=== PATIENT | male | born 1955 | race Caucasian/White ===

== ENCOUNTER 2018-09-09 12:47 | Emergency (ER) | payer OTHER ==
[2018-09-09] MEDS ORDERED: Ketorolac 60 MG/2 ML SDV IM ONE (13:10)
--- NOTE | 2018-09-09 13:35 | EDM.PDOC ---
ED HPI GENERAL MEDICAL PROBLEM - General Chief Complaint: General Stated Complaint: tooth pain Time Seen by Provider: 09/09/18 12:50 Source of Information: Reports: Patient History Limitations: Reports: No Limitations - History of Present Illness Onset: Gradual Duration: Week(s):, Getting Worse Location: Reports: Other (Right upper incisor) Quality: Reports: Ache, Throbbing Severity: Moderate Improves with: Reports: Cold Therapy Worsens with: Reports: None Associated Symptoms: Reports: No Other Symptoms left upper tooth/face Pain Score (Numeric/FACES): 10 - Related Data Allergies Allergy/AdvReac Type Severity Reaction Status Date / Time No Known Allergies Allergy Verified 09/09/18 12:50 Home Meds: Home Meds Ibuprofen 800 mg PO Q4HR PRN 09/09/18 [History] Past Medical History - Past Surgical History Musculoskeletal Surgical History: Reports: Shoulder Surgery, Other (See Below) Other Musculoskeletal Surgeries/Procedures:: bilat rotator cuff repairs Social & Family History - Tobacco Use Smoking Status *Q: Current Every Day Smoker Years of Tobacco use: 35 Packs/Tins Daily: 1 - Recreational Drug Use Recreational Drug Use: No ED ROS GENERAL - Review of Systems Review Of Systems: See Below Constitutional: Reports: No Symptoms HEENT: Reports: Other (Right upper canine pain) Respiratory: Reports: No Symptoms Cardiovascular: Reports: No Symptoms Endocrine: Reports: No Symptoms GI/Abdominal: Reports: No Symptoms : Reports: No Symptoms Musculoskeletal: Reports: No Symptoms Skin: Reports: No Symptoms Neurological: Reports: No Symptoms Psychiatric: Reports: No Symptoms Hematologic/Lymphatic: Reports: No Symptoms Immunologic: Reports: No Symptoms ED EXAM, GENERAL - Physical Exam Exam: See Below Exam Limited By: No Limitations General Appearance: Alert, WD/WN, No Apparent Distress Ears: Normal External Exam, Normal Canal, Hearing Grossly Normal, Normal TMs Nose: Normal Inspection, Normal Mucosa, No Blood Throat/Mouth: Other (Right incisor upper pain) Head: Atraumatic, Normocephalic Neck: Normal Inspection, Supple, Non-Tender, Full Range of Motion Respiratory/Chest: No Respiratory Distress, Lungs Clear, Normal Breath Sounds, No Accessory Muscle Use, Chest Non-Tender Cardiovascular: Normal Peripheral Pulses, Regular Rate, Rhythm, No Edema, No Gallop, No JVD, No Murmur, No Rub GI/Abdominal: Normal Bowel Sounds, Soft, Non-Tender, No Organomegaly, No Distention, No Abnormal Bruit, No Mass (Male) Exam: No Hernia, Normal Inspection, Normal Prostate, Circumcised Rectal (Males) Exam: Deferred Extremities: Normal Capillary Refill, Arm Pain Neurological: Alert, Oriented, CN II-XII Intact, Normal Cognition, Normal Gait, Normal Reflexes, No Motor/Sensory Deficits Skin Exam: Ecchymosis (Right wrist) Lymphatic: No Adenopathy Course - Vital Signs Last Recorded V/S: Last Vital Signs Temp 98.3 F 09/09/18 12:48 Pulse 81 09/09/18 12:48 Resp 20 09/09/18 12:48 BP 188/96 H 09/09/18 12:48 Pulse Ox 98 09/09/18 12:48 - Orders/Labs/Meds Meds: Medications Discontinued Medications Generic Name Dose Route Start Last Admin Trade Name Freq PRN Reason Stop Dose Admin Ketorolac Tromethamine 60 mg 09/09/18 13:10 09/09/18 13:19 Toradol IM 09/09/18 13:11 60 mg ONETIME ONE Administration Departure - Departure Time of Disposition: 13:52 Disposition: Home, Self-Care 01 Condition: Fair Clinical Impression: Apical abscess, Pain - Discharge Information *PRESCRIPTION DRUG MONITORING PROGRAM REVIEWED*: No *COPY OF PRESCRIPTION DRUG MONITORING REPORT IN PATIENT NILAM: No Instructions: Amoxicillin; Clavulanic Acid tablets, Dental Abscess, Ketorolac tablets Referrals: Dino Montes De Oca [employer] [Primary Care Provider] - Forms: ED Department Discharge Care Plan Goals: Patient sent home with Toradol 10 mg every 6 hours for pain and Augmentin 875 twice a day for infection follow-up with dentist Tuesday at 12
== END 2018-09-09 14:05 | disposition home or self-care (01) ==
LOC: LL.ED 12:47
DX: K04.7 Periapical abscess without sinus (principal); F17.210 Nicotine dependence, cigarettes, uncomplicated
CPT/HCPCS: 96372; 99282; J1885

== ENCOUNTER 2021-03-26 13:44 | Emergency (ER) | payer MEDICARE, BC ==
[2021-03-26] MEDS ORDERED: Sodium Chloride 0.9% 10 ML Syringe FLUSH PRN (13:54)
--- NOTE | 2021-03-26 14:10 | EDM.PDOC ---
ED HPI GENERAL MEDICAL PROBLEM - General Chief Complaint: Neuro Symptoms/Deficits Stated Complaint: Slurred Speech Time Seen by Provider: 03/26/21 13:45 Source of Information: Reports: Patient History Limitations: Reports: No Limitations - History of Present Illness INITIAL COMMENTS - FREE TEXT/NARRATIVE: Pt. presents to ER with history of of intermittent expressive aphasia, co mplaints of intermittent R hand numbness, intermittent R lower extremity numbness, intermittent R sided facial numbness. Pt. states that the expressive aphasia has been happening intermittently for approx. 2 days. The last episode happened this AM at approx. 11:30 in the presence of his brother. Pt. denies any history of cerebrovascular disease. Pt. has multiple risk factors for stroke including obesity and smoking (approx. 1.5 ppd). His blood glucose was checked in ER on arrival and was greater than 300mg/dl. Pt. has never been diagnosed with diabetes in the past. Pt. sister in law states that the patient "doesn't doctor" and has not had any preventive medical care for years. Aside from the expressive aphasia, today pt. only complained for numbness in the 4th and 5th digit of the R hand, which again has been a chronic problem for the pt. He has not had any lower extremity of facial numbness for weeks. He denies any current chest pain, but has intermittent exertional chest pain at times, as well as COATES. He is currently not experiencing any shortness of breath at rest. He is vaccinated for covid. He is not experiencing any headache, vision loss or change, weakness in upper or lower extremities, facial droop. NIH on arrival to ER was 0. Onset Date: 03/25/21 Location: Reports: Head, Generalized - Related Data Allergies Allergy/AdvReac Type Severity Reaction Status Date / Time No Known Allergies Allergy Verified 03/26/21 13:57 Home Meds: Home Meds Ibuprofen 800 mg PO Q4HR PRN 09/09/18 [History] Past Medical History - Past Surgical History Musculoskeletal Surgical History: Reports: Shoulder Surgery, Other (See Below) Other Musculoskeletal Surgeries/Procedures:: bilat rotator cuff repairs ED ROS GENERAL - Review of Systems Review Of Systems: See Below Constitutional: Reports: No Symptoms HEENT: Reports: Other (states has had blurred vision for months, L more than R.) Respiratory: Reports: No Symptoms Cardiovascular: Reports: No Symptoms Endocrine: Reports: No Symptoms GI/Abdominal: Reports: No Symptoms : Reports: No Symptoms Musculoskeletal: Reports: No Symptoms Skin: Reports: No Symptoms Neurological: Reports: Numbness, Trouble Speaking Psychiatric: Reports: No Symptoms Hematologic/Lymphatic: Reports: No Symptoms Immunologic: Reports: No Symptoms ED EXAM, GENERAL - Physical Exam Exam: See Below Exam Limited By: No Limitations General Appearance: Alert, WD/WN, Anxious Eye Exam: Bilateral Eye: EOMI, Normal Fundi, PERRL Ears: Normal External Exam, Normal Canal, Hearing Grossly Normal, Normal TMs Ear Exam: Bilateral Ear: Auricle Normal, Canal Normal, TM normal Nose: Normal Inspection, No Blood Throat/Mouth: Normal Inspection, Normal Lips, Normal Oropharynx, Normal Voice, No Airway Compromise Head: Atraumatic, Normocephalic Neck: Normal Inspection, Supple, Non-Tender, Full Range of Motion Respiratory/Chest: No Respiratory Distress, No Accessory Muscle Use, Chest Non- Tender, Decreased Breath Sounds Cardiovascular: Normal Peripheral Pulses, Regular Rate, Rhythm, No Edema, No JVD Peripheral Pulses: 4+: Radial (L) GI/Abdominal: Soft, Non-Tender, No Organomegaly, No Distention (Male) Exam: Deferred Rectal (Males) Exam: Deferred Back Exam: Normal Inspection, Full Range of Motion Extremities: Normal Inspection, Normal Range of Motion, Non-Tender, No Pedal Edema, Normal Capillary Refill Neurological: Alert, Oriented, CN II-XII Intact, Normal Cognition, Normal Gait, Normal Reflexes, No Motor/Sensory Deficits Psychiatric: Normal Affect, Anxious Skin Exam: Warm, Dry, Intact, Normal Color, No Rash Lymphatic: No Adenopathy Course - Vital Signs Last Recorded V/S: Last Vital Signs Temp 35.8 C L 03/26/21 13:45 Pulse 67 03/26/21 18:00 Resp 20 03/26/21 14:00 BP 131/81 03/26/21 18:00 Pulse Ox 97 03/26/21 14:00 - Orders/Labs/Meds Orders: Active Orders 24 hr Category Date Time Status Cardiac Monitoring [RC] CONTINUOUS Care 03/26/21 13:54 Active EKG Documentation Completion [RC] ASDIRECTED Care 03/26/21 14:03 Active Peripheral IV Care [RC] . DIRECTED Care 03/26/21 13:56 Active Ang Head [CT] Stat Exams 03/26/21 16:10 Taken Ang Neck [CT] Stat Exams 03/26/21 16:10 Ordered Head wo Cont [CT] Stat Exams 03/26/21 13:55 Taken DRUG SCREEN, URINE [URCHEM] Stat Lab 03/26/21 13:56 Ordered Sodium Chloride 0.9% [Saline Flush] Med 03/26/21 13:54 Active 10 ml FLUSH ASDIRECTED PRN Peripheral IV Insertion Adult [OM.PC] Routine Oth 03/26/21 13:55 Ordered EKG 12 Lead [EK] Stat Ther 03/26/21 14:03 Ordered Medication Orders Sodium Chloride (Sodium Chloride 0.9% 10 Ml Syringe) 10 ml FLUSH ASDIRECTED PRN PRN Reason: Keep Vein Open Labs: Laboratory Tests 03/26/21 03/26/21 03/26/21 Range/Units 13:55 13:55 13:55 WBC 10.8 H (4.0-10.2) K/uL RBC 5.14 (4.33-5.41) M/uL Hgb 18.0 H D (13.1-16.8) g/dL Hct 52.0 H (39.0-49.0) % MCV 101.2 H D (84.0-98.0) fL MCH 35.0 H (28.2-33.3) pg MCHC 34.6 (31.7-36.0) g/dL RDW 12.3 (11.2-14.1) % Plt Count 147 L (150-350) K/uL Neut % (Auto) 70.3 (45.0-80.0) % Lymph % (Auto) 22.5 (10.0-50.0) % [place] % (Auto) 6.1 (2.0-14.0) % Eos % (Auto) 0.6 (0.0-5.0) % Baso % (Auto) 0.5 (0.0-2.0) % Neut # (Auto) 7.58 H (1.40-7.00) K/uL Lymph # (Auto) 2.43 (0.50-3.50) K/uL [place] # (Auto) 0.66 (0.00-1.00) K/uL Eos # (Auto) 0.07 (0.00-0.50) K/uL Baso # (Auto) 0.05 (0.00-0.20) K/uL PT 9.8 (9.5-12.0) SEC INR 1.0 APTT 22.4 L (24.5-32.8) SEC Sodium 138 (136-145) mmol/L Potassium 4.1 (3.5-5.1) mmol/L Chloride 104 (98-107) mmol/L Carbon Dioxide 24.8 (21.0-32.0) mmol/L Anion Gap 9.2 (7-15) meq/L BUN 15 (7-18) mg/dL Creatinine 1.03 (0.51-1.17) mg/dL Est Cr Clr Drug Dosing 78.48 mL/min Estimated GFR (MDRD) > 60 mL/min Glucose 297 H (70-99) mg/dL Calcium 9.1 (8.5-10.1) mg/dL Phosphorus 2.9 (2.6-4.7) mg/dL Magnesium 1.7 L (1.8-2.4) mg/dL Total Bilirubin 0.7 (0.2-1.0) mg/dL AST 22 (15-37) U/L ALT 43 (12-78) U/L Alkaline Phosphatase 96 (46-116) IU/L Troponin I High Sens 7 (<=76) ng/L C-Reactive Protein 0.5 (<=0.9) mg/dL Total Protein 6.5 (6.4-8.2) g/dL Albumin 3.4 (3.4-5.0) g/dL TSH, Ultra Sensitive 0.826 (0.358-3.740) mIU/mL Ethyl Alcohol 0.005 (0.000-0.080) g/dL Meds: Medications Generic Name Dose Route Start Last Admin Trade Name Freq PRN Reason Stop Dose Admin Sodium Chloride 10 ml 03/26/21 13:54 Sodium Chloride 0.9% 10 Ml Syringe FLUSH ASDIRECTED PRN Keep Vein Open Discontinued Medications Generic Name Dose Route Start Last Admin Trade Name Freq PRN Reason Stop Dose Admin Acetaminophen 1,000 mg 03/26/21 17:56 Acetaminophen 500 Mg Tab PO 03/26/21 17:57 ONETIME ONE Iopamidol 100 ml 03/26/21 16:15 03/26/21 16:35 Iopamidol 755 Mg/Ml 100 Ml Bottle IVPUSH 03/26/21 16:16 100 ml ONETIME ONE Administration Nicotine 14 mg 03/26/21 17:07 03/26/21 17:14 Nicotine 14 Mg/24 Hr Patch TRDERM 03/26/21 17:08 14 mg ONETIME ONE Administration - Radiology Interpretation Free Text/Narrative:: Non-contrast CT of head was obtained and was negative for acute pathology. CT angiogram of head and neck obtained. Radiologist reports that the quality of the study was poor and subsequently non-diagnostic. - Re-Assessments/Exams Free Text/Narrative Re-Assessment/Exam: [address] Duarte, stroke neurologist at [facility]. he advised a CTA head and neck on the patient, and advised the need for the patient to undergo an MRI as well. [facility] currently has no beds or staffing and w ould not be able to accept the patient today. Plan was to then admit the patient to this facility for 24 hours with neuro checks, if the patient will allow. Discussed possible transfer to [place] at that time with pt. and he adamantly refuses due to bad experiences with that health system. 1610 Subsequently a CTA was performed of head and neck. There was a significant delay in getting results of the study due to high patient volume at [facility]. Radiologist states that the study was done improperly and that it was of poor quality. He was not able to make a diagnosis based on the images available. Report was obtained via phone at approx. [phone] Contacted [facility] one call to relay findings, discuss transfer as opposed to repeating study and have the second study be of poor quality as well. They were unable to accept patient still and advised contacting [facility]. Briefly contacted [facility] to discuss case with Dr. Salmon/arrange potential transfer. While waiting to discuss the case with him, information was given to pt. and his sister in law. Pt. adamantly refused transfer to [facility] [place] for further workup. Pt. requests to be discharged immediately and states that he will return to ER if the symptoms redevelop. Departure - Departure Time of Disposition: 19:39 Disposition: Home, Self-Care 01 Clinical Impression: Expressive aphasia - Discharge Information Instructions: Type 2 Diabetes Mellitus, Diagnosis, Adult, Ischemic Stroke, [id number], Metformin tablets Referrals: PCP,None [Primary Care Provider] - Forms: ED Department Discharge Additional Instructions: You have been advised to stay in the hospital. Please return to ER if you develop recurrence of troubles with speech, weakness, trouble walking. Follow-up with your PCP next week. Start metformin 500mg twice daily for your diabetes Sepsis Event Note (ED) - Focused Exam Vital Signs: Vital Signs Temp Pulse Resp BP Pulse Ox 03/26/21 18:00 67 131/81 03/26/21 17:00 65 142/83 H 03/26/21 16:30 64 92/67 03/26/21 16:00 67 136/79 03/26/21 15:30 65 120/64 03/26/21 15:00 67 130/87 03/26/21 14:30 66 110/66 03/26/21 14:00 75 20 143/70 H 97 03/26/21 13:45 35.8 C L 97 18 162/110 H 98 - My Orders Last 24 Hours: My Active Orders 03/26/21 13:54 Cardiac Monitoring [RC] CONTINUOUS Sodium Chloride 0.9% [Saline Flush] 10 ml FLUSH ASDIRECTED PRN 03/26/21 13:55 Head wo Cont [CT] Stat Peripheral IV Insertion Adult [OM.PC] Routine 03/26/21 13:56 Peripheral IV Care [RC] . DIRECTED DRUG SCREEN, URINE [URCHEM] Stat 03/26/21 14:03 EKG Documentation Completion [RC] ASDIRECTED EKG 12 Lead [EK] Stat 03/26/21 16:10 Ang Head [CT] Stat Ang Neck [CT] Stat - Assessment/Plan Last 24 Hours: My Active Orders 03/26/21 13:54 Cardiac Monitoring [RC] CONTINUOUS Sodium Chloride 0.9% [Saline Flush] 10 ml FLUSH ASDIRECTED PRN 03/26/21 13:55 Head wo Cont [CT] Stat Peripheral IV Insertion Adult [OM.PC] Routine 03/26/21 13:56 Peripheral IV Care [RC] . DIRECTED DRUG SCREEN, URINE [URCHEM] Stat 03/26/21 14:03 EKG Documentation Completion [RC] ASDIRECTED EKG 12 Lead [EK] Stat 03/26/21 16:10 Ang Head [CT] Stat Ang Neck [CT] Stat Plan: Discussed case at length with patient and sister in law who is a nurse here at the hospital. Pt. is well aware that he may be on his way to having a stroke with permanent disability or . Pt. was upset about being in the ER and questioned when he would be discharged numerous times during his stay. Again, he has not had medical care for years and is resistive to medical care. He refuses admission to the hospital locally. Pt. family will be staying with the patient apparently. They were advised to return to this facility if he develops problems with speech, walking, extremity weakness, facial droop. Discussed admitting the patient locally, hydrating him and repeating his CTA head and neck in the AM which he also refuses. He affirmed numerous times that he would return to this facility for further evaluation and treatment should he develop any of the above discussed symptoms. Patient and family were advised not to freelance transfer to another facility and advised to return locally if they so choose. Pt. was started on metformin 500mg 1 twice daily for previously undiagnosed type 2 DM. Advised to follow-up with PCP early next week.
[2021-03-26 14:33] LABS: ANION GAP 9.2 meq/L (7-15); CHLORIDE,CL 104 mmol/L (98-107); SODIUM,NA 138 mmol/L (136-145)
[2021-03-26 14:55] LABS: PTT,PARTIAL THROMBOPLSTIN TIME 22.4 SEC (24.5-32.8)
[2021-03-26] MEDS ORDERED: Iopamidol 755 Mg/ML 100 ML Bottle IVPUSH ONE (16:15)
[2021-03-26] MEDS ORDERED: Nicotine 14 MG/24 Hr Patch TRDERM ONE (17:07)
[2021-03-26] MEDS ORDERED: Acetaminophen 500 MG Tab PO ONE (17:56)
== END 2021-03-26 19:20 | disposition home or self-care (01) ==
LOC: LL.ED 13:44
DX: R47.01 Aphasia (principal)
CPT/HCPCS: 36415; 70450; 70496; 70498; 80053; 80307; 82962; 83735; 84100; 84443; 84484; 85025; 85610; 85730; 86140; 93005; 99285-25; A9270-GY; Q9967

== ENCOUNTER 2024-02-02 11:43 | Day surgery (SDC) | payer MEDICARE, BC ==
[~2024-02-02 11:43] MED LIST: Midazolam 1 MG/ML 2 ML SDV ONE; Propofol 200 MG/20 ML SDV ONE
[2024-02-02] MEDS: Lactated Ringers 1,000 ML IV SCH (12:53)
[2024-02-02] MEDS ORDERED: Sodium Chloride 0.9% 10 ML Syringe FLUSH PRN (13:30)
[2024-02-02] MEDS ORDERED: Lidocaine 2% 5 ML SDV ONE (14:29)
[2024-02-02] MEDS ORDERED: Glycopyrrolate 0.2 MG/ML SDV IVPUSH ONE (14:29)
[2024-02-02] MEDS ORDERED: Propofol 200 MG/20 ML SDV ONE ×3 (14:44→15:24)
== END 2024-02-02 16:30 | disposition home or self-care (01) ==
LOC: LL.SDS 11:43
PROVIDERS: ATTEND Surgery
DX: K62.1 Rectal polyp (principal); K63.5 Polyp of colon; D12.3 Benign neoplasm of transverse colon; K44.9 Diaphragmatic hernia without obstruction or gangrene; K21.00 Gastro-esophageal reflux disease with esophagitis, without bleeding; K57.30 Diverticulosis of large intestine without perforation or abscess without bleeding; K31.9 Disease of stomach and duodenum, unspecified; R19.5 Other fecal abnormalities; R68.81 Early satiety; R63.4 Abnormal weight loss; I10 Essential (primary) hypertension; E11.9 Type 2 diabetes mellitus without complications; Z79.84 Long term (current) use of oral hypoglycemic drugs; Z79.899 Other long term (current) drug therapy; Z87.891 Personal history of nicotine dependence; Z79.82 Long term (current) use of aspirin
CPT/HCPCS: J1596; J2250; J2704; J3490; J7120

== ENCOUNTER 2024-07-09 09:52 | Emergency (ER) | payer MEDICARE, BC ==
[2024-07-09 10:16] LABS: BASOPHILS ABSOLUTE AUTO 0.06 K/uL (0.00-0.20); BASOPHILS PERCENT AUTO 0.5 % (0.0-2.0); EOSINOPHILS ABSOLUTE AUTO 0.07 K/uL (0.00-0.50); EOSINOPHILS PERCENT AUTO 0.6 % (0.0-5.0); HEMATOCRIT 42.1 % (39.0-49.0); HEMOGLOBIN 14.5 g/dL (13.1-16.8); IMMATURE GRAN ABSOLUTE AUTO 0.02 10^3/uL (0.00-0.04); IMMATURE GRAN PERCENT AUTO 0.2 % (0.0-0.4); LYMPHOCYTES ABSOLUTE AUTO 1.62 K/uL (0.50-3.50); LYMPHOCYTES PERCENT AUTO 14.2 % (10.0-50.0); MEAN CORPUSCULAR HEMOGLOBIN 35.2 pg (28.2-33.3); MEAN CORPUSCULAR HGB CONC 34.4 g/dL (31.7-36.0); MEAN CORPUSCULAR VOLUME 102.2 fL (84.0-98.0); MONOCYTES PERCENT AUTO 6.2 % (2.0-14.0); NEUTROPHILS ABSOLUTE AUTO 8.91 K/uL (1.40-7.00); NEUTROPHILS PERCENT AUTO 78.3 % (45.0-80.0); PLATELET COUNT,PLT 221 K/uL (150-350); RED BLOOD CELL COUNT 4.12 M/uL (4.33-5.41); RED CELL DISTRIBUTION WIDTH 12.8 % (11.2-14.1); WHITE BLOOD CELL COUNT,WBC 11.4 K/uL (4.0-10.2)
[2024-07-09 10:40] LABS: PROTHROMBIN TIME 10.3 SEC (9.0-11.1)
[2024-07-09] MEDS: Sodium Chloride 0.9% 10 ML Syringe FLUSH PRN (10:40)
[2024-07-09] MEDS: Diltiazem 25 MG/5 ML SDV IVPUSH ONE (10:40)
[2024-07-09 10:43] LABS: ALBUMIN 2.8 g/dL (3.4-5.0); BILIRUBIN TOTAL 0.8 mg/dL (0.2-1.0); CALCIUM 8.2 mg/dL (8.5-10.1); CARBON DIOXIDE,CO2 33.5 mmol/L (21.0-32.0); CREATININE 1.44 mg/dL (0.51-1.17); EST CRCL DRUG DOSING (CG) 53.89 mL/min; MAGNESIUM 0.8 mg/dL (1.8-2.4); PROTEIN TOTAL,TP 5.8 g/dL (6.4-8.2)
[2024-07-09 10:45] LABS: ANION GAP 12.5 meq/L (7-15)
[2024-07-09] MEDS: Potassium Bicarbonate/Cit Ac 20 MEQ Effervescent Tab PO ONE ×2 (11:20→13:37)
[2024-07-09] MEDS: Diltiazem IR 60 MG Tab PO ONE (11:21)
[2024-07-09] MEDS: Magnesium Sulfate/Water Premix 2 GM in Premix Bag 1 BAG IV ONE ×2 (11:21→13:37)
[2024-07-09] MEDS: LORazepam 0.5 MG Tab PO ONE (11:30)
[2024-07-09] MEDS: Sodium Chloride 0.9% 1,000 ML IV ONE (11:36)
[2024-07-09] MEDS ORDERED: Iopamidol 612 MG/ML 100 ML Bottle ONE (14:48)
[2024-07-09] MEDS: Iopamidol 612 MG/ML 100 ML Bottle IVPUSH ONE (15:10)
[2024-07-09 15:40] LABS: CALCIUM 7.8 mg/dL (8.5-10.1); CARBON DIOXIDE,CO2 33.9 mmol/L (21.0-32.0); CREATININE 1.26 mg/dL (0.51-1.17); EST CRCL DRUG DOSING (CG) 61.59 mL/min; POTASSIUM,K 3.3 mmol/L (3.5-5.1)
[2024-07-09 15:41] LABS: ANION GAP 11.4 meq/L (7-15)
[2024-07-09] MEDS: Potassium Chloride 20 MEQ Tab.ER PO ONE (16:06)
[2024-07-09] MEDS: Diltiazem 120 MG Cap.CD PO ONE (16:06)
[2024-07-09 16:07] VITALS: BP 148/88; PULSE 81
== END 2024-07-09 16:10 | disposition home or self-care (01) ==
LOC: LL.ED 09:52
DX: I48.0 Paroxysmal atrial fibrillation (principal); E87.6 Hypokalemia; E83.42 Hypomagnesemia; I10 Essential (primary) hypertension; E78.00 Pure hypercholesterolemia, unspecified; E11.9 Type 2 diabetes mellitus without complications; Z79.82 Long term (current) use of aspirin; Z79.02 Long term (current) use of antithrombotics/antiplatelets; Z79.84 Long term (current) use of oral hypoglycemic drugs; Z86.73 Personal history of transient ischemic attack (TIA), and cerebral infarction without residual deficits; Z79.01 Long term (current) use of anticoagulants; Z79.899 Other long term (current) drug therapy
CPT/HCPCS: 36415; 71046; 71260; 80048; 80053; 83735; 83880; 84484; 85025; 85379; 85610; 93005; 93010; 96365; 96366; 96375; 99284; 99285-25; A9270-GY; J3475; J3490; J7030; Q9967